=== PATIENT | male | born 1965 ===

== ENCOUNTER 2017-05-11 20:11 | Observation (INO) | payer MEDICAID, OTHER, SELFPAY ==
[2017-05-11] MEDS ORDERED: Sodium Chloride 0.9% 1,000 ML IV STA ×2 (20:51→21:56)
[2017-05-11 21:29] LABS: BASO % 0.4 % (0.0-2.0); EOS % 0.4 % (0.0-4.0); HEMATOCRIT 49.9 % (35.0-51.0); LYMPH # 1.3 K/uL (1.0-4.3); LYMPH % 12.9 % (20.0-40.0); MEAN CELL VOLUME 87.6 fl (80.0-94.0); MEAN CORPUSCULAR HEMOGLOBIN 30.5 pg (27.0-31.0); MEAN CORPUSCULAR HGB CONC 34.8 g/dL (33.0-37.0); MEAN PLATELET VOLUME 9.5 fl (7.2-11.7); MONO % 9.9 % (0.0-10.0); NEUT # 7.9 K/uL (1.8-7.0); NEUT % 76.4 % (50.0-75.0); NRBC % 0.2 % (0.0-0.0); RED CELL DISTRIBUTION WIDTH 13.4 % (11.5-14.5); WHITE BLOOD COUNT 10.3 K/uL (4.8-10.8)
--- NOTE | 2017-05-11 21:35 | ED PDOC ---
HPI: General Adult Time Seen by Provider: 05/11/17 20:31 Chief Complaint (Nursing): ENT Problem Chief Complaint (Provider): Muscle Cramps History Per: Patient History/Exam Limitations: no limitations Onset/Duration Of Symptoms: Hrs Have you had recent travel within the past 21 days to any of the following countries: [place], [place], [place] or [place]?: No Current Symptoms Are (Timing): Still Present Additional Complaint(s): Josh Lawler, a 51 year old male, who has a PMHx of kidney failure and rhabdomyolysis presents to the ED with muscle cramps. 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 The patient reports that he feels as though all his muscles are cramping. He states that he also feels mild chest pain, has SOB and feels lightheaded. The patient reports that he had similar episodes last year before he was diagnosed with rhabdomyolysis and kidney failure. He states that he tried to drink alot of fluids while outside today and he was working outdoors yesterday as well. Patient states that he goes to the clinic here at [place]. Denies urinary symptoms. Past Medical History Reviewed: Historical Data, Nursing Documentation, Vital Signs Vital Signs: Last Vital Signs Temp 98.0 F 05/11/17 20:18 Pulse 90 05/11/17 20:18 Resp 16 05/11/17 20:18 BP 134/74 05/11/17 20:18 Pulse Ox 100 05/11/17 20:18 - Medical History PMH: HTN Denies: Chronic Kidney Disease Other PMH: Rhabdomyolysis - Family History Family History: States: Unknown Family Hx - Home Medications Home Medications: Ambulatory Orders Medication Instructions Recorded Naproxen [Naprosyn] 500 mg PO BID PRN #15 tablet 01/21/17 - Allergies Allergies/Adverse Reactions: Allergies Allergy/AdvReac Type Severity Reaction Status Date / Time No Known Allergies Allergy Verified 05/11/17 20:18 Review of Systems ROS Statement: Except As Marked, All Systems Reviewed And Found Negative Cardiovascular: Positive for: Chest Pain (Mild chest pain), Light Headedness Respiratory: Positive for: Shortness of Breath Genitourinary Male: Negative for: Dysuria, Frequency, Incontinence, Hematuria Musculoskeletal: Positive for: Other (Muscle Cramps) Physical Exam - Reviewed Nursing Documentation Reviewed: Yes Vital Signs Reviewed: Yes - Physical Exam Appears: Positive for: Non-toxic, In Acute Distress (Mild painful distress) Head Exam: Positive for: ATRAUMATIC, NORMOCEPHALIC Skin: Positive for: Normal Color, Warm, Dry Eye Exam: Positive for: Normal appearance, EOMI, PERRL ENT: Positive for: Normal ENT Inspection Neck: Positive for: Normal, Painless ROM, Supple Cardiovascular/Chest: Positive for: Regular Rate, Rhythm, Chest Non Tender. Negative for: Tachycardia Respiratory: Positive for: Normal Breath Sounds. Negative for: Wheezing, Respiratory Distress Gastrointestinal/Abdominal: Positive for: Normal Exam, Bowel Sounds, Soft. Negative for: Tenderness, Guarding, Rebound Back: Positive for: Normal Inspection Extremity: Positive for: Normal ROM. Negative for: Tenderness, Pedal Edema, Deformity, Swelling Neurologic/Psych: Positive for: Alert, Oriented, Gait - ECG O2 Sat by Pulse Oximetry: 100 (RA) Pulse Ox Interpretation: Normal Medical Decision Making Medical Decision Makin:31 Initial Impression: 51 year old male presenting with muscle cramps Differentials: Dehydration, Electrolyte Abnormalities, Rhabdomyolysis Initial Plan: * EKG * CMP * Creatine Phosphate * Lactic Acid-Plasma * Magnesium * Phosphorous * Troponin 1 * Udip * CBC * Partial Thromboplastin * Prothrombin time * NS 1000ml IV 1000mls/hr * Ultram 50mg PO * Rapid Strep group * [id number] * Reevaluation Scribe Attestation Documented by Rola Madrigal acting as a scribe for Desiree Burger MD. Provider Attestation All medical record entries made by the Scribe were at my direction and personally dictated by me. I have reviewed the chart and agree that the record accurately reflects my personal performance of the history, physical exam, medical decision making, and the department course for this patient. I have also personally directed, reviewed, and agree with the discharge instructions and disposition.
[2017-05-11 21:44] LABS: ALB/GLOB RATIO 1.2 (1.0-2.1); BILIRUBIN,TOTAL 1.3 mg/dl (0.2-1.3); CALCIUM 10.2 mg/dL (8.4-10.2); MAGNESIUM 2.3 MG/DL (1.6-2.3); PHOSPHOROUS 6.6 mg/dl (2.5-4.5); POTASSIUM 4.6 MMOL/L (3.6-5.0); TOTAL PROTEIN 10.3 G/DL (6.3-8.2)
[2017-05-11 21:49] LABS: PARTIAL THROMBOPLASTIN TIME 26.4 Seconds (25.6-37.1)
[2017-05-11 21:55] LABS: TROPONIN I 0.032 ng/mL (0.00-0.120)
--- NOTE | 2017-05-11 22:14 | CP.PCM.HP ---
History of Present Illness - History of Present Illness History of Present Illness: CC: Myalgias 51M with history of rhabdomyolysis p/w worsening body "cramps" that started the day prior but worsened throughout the day today while working out in the sun. He reports this was associated with some nausea. He also reports a sore throat for the past 2 days and urine color change to "darker". He denies any sick contacts, fevers, chills, vomiting, SOB, chest pain, palpitations, dysuria. PMH: Rhabdomyolysis PSH: None Smoke: Never Alcohol: Occ Drugs: Denies ALL: NKDA KIMBERLY: Denies ED COURSE VSS: 36.7- 90- 134/74- 16- 100% CBC: 10.3>17.4/49.9<184, Neut- 76.4%, Neut Abs- 7.9H CMP: 136/4.6- 97L/20L- 26H/1.8H, Ca- 10.2, Phos- 6.6, Gluc- 116H, TBili- 1.3, ALP/AST/ALT-109/49/46, TProt/Alb- 10.3/5.7 Trop #1: 0.0320 CPK: 404H EKG NS 2L bolus Present on Admission - Present on Admission Any Indicators Present on Admission: No Review of Systems - Review of Systems All systems: reviewed and no additional remarkable complaints except - EENT Nose/Mouth/Throat: Sore Throat - Musculoskeletal Musculoskeletal: Muscle Cramps (entire body) Past Patient History - Infectious Disease Hx of Infectious Diseases: None - Past Medical History & Family History Past Medical History?: Yes - Past Social History Smoking Status: Never Smoked - CARDIAC Hx Hypertension: Yes - PULMONARY Hx Respiratory Disorders: No - NEUROLOGICAL Hx Neurological Disorder: No - HEENT Hx HEENT Problems: No - RENAL Hx Chronic Kidney Disease: No - ENDOCRINE/METABOLIC Hx Endocrine Disorders: No - HEMATOLOGICAL/ONCOLOGICAL Hx Blood Disorders: No - INTEGUMENTARY Hx Dermatological Problems: No - MUSCULOSKELETAL/RHEUMATOLOGICAL Hx Falls: Yes (fell 15 yrs ago, work-related) - GASTROINTESTINAL Hx Gastrointestinal Disorders: No - GENITOURINARY/GYNECOLOGICAL Hx Genitourinary Disorders: No - PSYCHIATRIC Hx Psychophysiologic Disorder: No Hx Substance Use: No - SURGICAL HISTORY Hx Surgeries: No - ANESTHESIA Hx Anesthesia: Yes Hx Anesthesia Reactions: No Meds Allergies/Adverse Reactions: Allergies Allergy/AdvReac Type Severity Reaction Status Date / Time No Known Allergies Allergy Verified 05/11/17 20:18 Physical Exam - Constitutional Appears: Well, Non-toxic, No Acute Distress - Head Exam Head Exam: ATRAUMATIC, NORMAL INSPECTION - Eye Exam Eye Exam: EOMI, PERRL - ENT Exam ENT Exam: Mucous Membranes Moist, Normal Exam. absent: Normal Oropharynx ( erythematous, but did not appreciate enlarged tonsils or exudates) - Neck Exam Neck exam: Positive for: Lymphadenopathy (LEFT submandibular node), Normal Inspection - Respiratory Exam Respiratory Exam: Clear to Auscultation Bilateral, NORMAL BREATHING PATTERN. absent: Rales, Wheezes - Cardiovascular Exam Cardiovascular Exam: REGULAR RHYTHM, +S1, +S2. absent: JVD - GI/Abdominal Exam GI & Abdominal Exam: Normal Bowel Sounds, Soft. absent: Tenderness - Extremities Exam Extremities exam: Positive for: full ROM, normal capillary refill, pedal pulses present. Negative for: pedal edema - Back Exam Back exam: CVA tenderness (L), CVA tenderness (R) - Neurological Exam Neurological exam: Alert, Oriented x3, Reflexes Normal - Psychiatric Exam Psychiatric exam: Normal Affect, Normal Mood - Skin Skin Exam: Normal Color, Warm Results - Vital Signs Recent Vital Signs: Last Vital Signs Temp 36.7 C 05/11/17 20:18 Pulse 90 05/11/17 20:18 Resp 16 05/11/17 20:18 BP 134/74 05/11/17 20:18 Pulse Ox 100 05/11/17 21:41 - Labs Result Diagrams: 05/11/17 21:15 05/12/17 00:29 Assessment & Plan (1) Strep pharyngitis Assessment and Plan: Rapid Strep positive though patient denies any fevers, chills, cough and afebrile in the ED. - Augmentin Q12H - f/u Strep Culture - f/u HIV Status: Acute (2) Rhabdomyolysis Assessment and Plan: Proposed exacerbating event is heat combined with volume depletion, of note this is the 3rd episode. Unfortunately, no UA obtained in the ED. - Trend CMP, CPK, Troponins - LDH - Rpt Lactic Acid - NS 200cc/hr Status: Acute (3) Acute renal failure Assessment and Plan: Likely multifactorial given rhabdomyolysis, volume depletion 2/2 heat, and possible contributing factor of ?strep infection. Unfortunately, no UA obtained in the ED. - Trend CMP, CPK, Troponins - LDH - Rpt Lactic Acid - NS 200cc/hr Status: Acute (4) DVT prophylaxis Assessment and Plan: Heparin 5,000U, SC, Q8H Status: Acute
[2017-05-11] MEDS ORDERED: Amoxicillin-Clav 875-125 mg Tab PO ONE (22:24)
[2017-05-11] MEDS: Amoxicillin-Clav 875-125 mg Tab PO SCH (22:35)
[2017-05-11] MEDS: Sodium Chloride 0.9% 1,000 ML IV SCH (23:25)
[2017-05-12 00:49] LABS: ALB/GLOB RATIO 1.3 (1.0-2.1); ALKALINE PHOSPHATASE 93 U/L (38-126); ALT/SGPT 37 U/L (21-72); AST/SGOT 38 U/L (17-59); BILIRUBIN,TOTAL 1.1 mg/dl (0.2-1.3); BLOOD UREA NITROGEN 21 mg/dl (9-20); CALCIUM 8.7 mg/dL (8.4-10.2); CARBON DIOXIDE 22 mmol/L (22-30); CHLORIDE 105 mmol/L (98-107); GFR AFRICAN-AMERICAN > 60; GLUCOSE,RANDOM 129 mg/dL (75-110); POTASSIUM 4.4 MMOL/L (3.6-5.0); SODIUM 137 mmol/l (132-148); TOTAL PROTEIN 7.9 G/DL (6.3-8.2)
[2017-05-12] MEDS: Sodium Chloride 0.9% 1,000 ML IV SCH ×3 (04:19→14:20)
[2017-05-12 06:56] LABS: BASO % 0.4 % (0.0-2.0); EOS # 0.1 K/uL (0.0-0.7); EOS % 1.8 % (0.0-4.0); HEMATOCRIT 40.7 % (35.0-51.0); LYMPH # 2.1 K/uL (1.0-4.3); LYMPH % 33.9 % (20.0-40.0); MEAN CELL VOLUME 88.5 fl (80.0-94.0); MEAN CORPUSCULAR HEMOGLOBIN 30.6 pg (27.0-31.0); MEAN CORPUSCULAR HGB CONC 34.5 g/dL (33.0-37.0); MEAN PLATELET VOLUME 9.3 fl (7.2-11.7); MONO # 0.8 K/uL (0.0-0.8); MONO % 12.9 % (0.0-10.0); NEUT # 3.2 K/uL (1.8-7.0); NRBC % 0.1 % (0.0-0.0); RED CELL DISTRIBUTION WIDTH 13.7 % (11.5-14.5); WHITE BLOOD COUNT 6.3 K/uL (4.8-10.8)
[2017-05-12 07:52] LABS: ALB/GLOB RATIO 1.3 (1.0-2.1); ALKALINE PHOSPHATASE 81 U/L (38-126); ALT/SGPT 34 U/L (21-72); AST/SGOT 34 U/L (17-59); BILIRUBIN,TOTAL 1.2 mg/dl (0.2-1.3); BLOOD UREA NITROGEN 17 mg/dl (9-20); CALCIUM 8.2 mg/dL (8.4-10.2); CARBON DIOXIDE 23 mmol/L (22-30); CHLORIDE 109 mmol/L (98-107); GFR AFRICAN-AMERICAN > 60; GLUCOSE,RANDOM 95 mg/dL (75-110); POTASSIUM 4.5 MMOL/L (3.6-5.0); SODIUM 140 mmol/l (132-148); TOTAL PROTEIN 6.8 G/DL (6.3-8.2)
[2017-05-12] MEDS: Amoxicillin-Clav 875-125 mg Tab PO SCH (08:21)
[2017-05-12] MEDS ORDERED: Pneumococcal 23-Valent Vaccine IM ONE (09:00)
--- NOTE | 2017-05-12 09:03 | CP.PCM.PN ---
Subjective - Date & Time of Evaluation Date of Evaluation: 05/12/17 Time of Evaluation: 08:45 - Subjective Subjective: No acute events overnight. Patient feeling better. No cramping overnight, pain is improved. Tolerating PO diet. No complaints at the time of this visit. 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 Will consult Dr. Mccullough- nephro. Objective - Vital Signs/Intake and Output Vital Signs (last 24 hours): Temp Pulse Resp BP Pulse Ox 98.6 F 70 20 106/68 95 05/12/17 07:24 05/12/17 07:24 05/12/17 07:24 05/12/17 07:24 05/12/17 07:24 - Medications Medications: Current Medications Amoxicillin/Clavulanate Potassium (Augmentin 875 Mg-125 Mg Tab) 1 tab PO Q12 [facility] Last Admin: 05/12/17 08:21 Dose: 1 tab Heparin Sodium (Porcine) (Heparin) 5,000 units SC Q8 [facility] PRN Reason: Protocol Last Admin: 05/12/17 08:21 Dose: 5,000 units Sodium Chloride (Sodium Chloride 0.9%) 1,000 mls @ 200 mls/hr IV .Q5H [facility] Last Admin: 05/12/17 04:19 Dose: 200 mls/hr - Labs Labs: 05/12/17 05:50 05/12/17 05:50 PT 11.6 Seconds (9.8-13.1) 05/11/17 21:15 INR 1.0 (0.9-1.2) 05/11/17 21:15 APTT 26.4 Seconds (25.6-37.1) 05/11/17 21:15 - Constitutional Appears: Other (mild pain, but comfortable in bed. ) - Eye Exam Eye Exam: Normal appearance - ENT Exam ENT Exam: Mucous Membranes Moist - Respiratory Exam Respiratory Exam: Clear to Ausculation Bilateral, NORMAL BREATHING PATTERN - Cardiovascular Exam Cardiovascular Exam: REGULAR RHYTHM, +S1, +S2 - GI/Abdominal Exam GI & Abdominal Exam: Soft, Normal Bowel Sounds. absent: Distended, Tenderness - Extremities Exam Extremities Exam: Full ROM. absent: Pedal Edema - Back Exam Back Exam: NORMAL INSPECTION - Neurological Exam Neurological Exam: Alert, Awake, CN II-XII Intact, Oriented x3. absent: Motor Sensory Deficit Additional comments: 5/5 strength in upper and lower extremities - Psychiatric Exam Psychiatric exam: Normal Affect, Normal Mood - Skin Skin Exam: Dry, Intact. absent: Pallor Assessment and Plan - Assessment and Plan (Free Text) Assessment: 51 year old male presented with sore throat and cramping and muscle soreness admitted for FAWN likely secondary to rhabdomylysis, with +strep throat. Patient is stable. Symptoms improved. (1) Rhabdomyolysis Assessment and Plan: improved, likely secondary to severe dehydration, given patients occupation, hg of 17 and presentation -CPK trending down, remains elevated - LDH --aldolase, mycoplasma, urine myoglobin, ua ordered and pending. -Appreciate nephrology recommendations. (Dr. Mccullough) - NS 200cc/hr Status: Acute (2) Strep pharyngitis Assessment and Plan: Rapid Strep positive though patient denies any fevers, chills, cough and afebrile - Augmentin Q12H - f/u Strep Culture - f/u HIV Status: Acute (3) Acute kidney injury Assessment and Plan: Likely multifactorial given rhabdomyolysis, volume depletion secondary to heat, and possible contributing factor of ?strep infection. - UA - repeat labs reviewed; CPK trending down. - LDH: WNL - Rpt Lactic Acid: 1.3 - NS 200cc/hr Status: Acute (4) DVT prophylaxis Assessment and Plan: Heparin 5,000U, SC, Q8H Status: Acute
--- NOTE | 2017-05-12 13:04 | CP.PCM.PN ---
Subjective - Date & Time of Evaluation Date of Evaluation: 05/12/17 Time of Evaluation: 13:01 - Subjective Subjective: This patient who is 51 years old came to the emergency room complaining of cramping all over his upper extremity but the legs. 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 He started to complain of cramping he was very hot day yesterday with temperature 95. And he came to the ER with abnormal BUN/creatinine and J elevated CPK. The history reported that the has couple admission before related to rhabdomyolysis as well with mild elevation of CPK the highest was about 1100. Deny any drugs Social history unremarkable Objective - Vital Signs/Intake and Output Vital Signs (last 24 hours): Temp Pulse Resp BP Pulse Ox 98.6 F 70 20 106/68 95 05/12/17 07:24 05/12/17 07:24 05/12/17 07:24 05/12/17 07:24 05/12/17 07:24 - Medications Medications: Current Medications Amoxicillin/Clavulanate Potassium (Augmentin 875 Mg-125 Mg Tab) 1 tab PO Q12 [facility] Last Admin: 05/12/17 08:21 Dose: 1 tab Heparin Sodium (Porcine) (Heparin) 5,000 units SC Q8 [facility] PRN Reason: Protocol Last Admin: 05/12/17 08:21 Dose: 5,000 units Sodium Chloride (Sodium Chloride 0.9%) 1,000 mls @ 200 mls/hr IV .Q5H [facility] Last Admin: 05/12/17 09:25 Dose: Not Given - Labs Labs: 05/12/17 05:50 05/12/17 05:50 PT 11.6 Seconds (9.8-13.1) 05/11/17 21:15 INR 1.0 (0.9-1.2) 05/11/17 21:15 APTT 26.4 Seconds (25.6-37.1) 05/11/17 21:15 - Constitutional Appears: No Acute Distress - ENT Exam ENT Exam: Mucous Membranes Moist - Respiratory Exam Respiratory Exam: absent: Chest Wall Tenderness - Cardiovascular Exam Cardiovascular Exam: REGULAR RHYTHM. absent: Rubs - Extremities Exam Extremities Exam: absent: Calf Tenderness - Back Exam Back Exam: absent: CVA tenderness (L), CVA tenderness (R) - Neurological Exam Neurological Exam: Alert
--- NOTE | 2017-05-12 13:07 | CP.PCM.CON ---
History of Present Illness - History of Present Illness History of Present Illness: This patient who is 51 years old came to the emergency room complaining of cramping all over his upper extremity but the legs. 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 He started to complain of cramping he was very hot day yesterday with temperature 95. And he came to the ER with abnormal BUN/creatinine and J elevated CPK. The history reported that the has couple admission before related to rhabdomyolysis as well with mild elevation of CPK the highest was about 1100. Deny any drugs Social history unremarkable Review of Systems - Constitutional Constitutional: As Per HPI - Cardiovascular Cardiovascular: absent: Chest Pain, Syncope - Respiratory Respiratory: absent: Cough, Dyspnea - Gastrointestinal Gastrointestinal: absent: Abdominal Pain, Nausea - Reproductive: Male Reproductive:Male: As Per HPI - Musculoskeletal Musculoskeletal: Muscle Cramps Past Patient History - Infectious Disease Hx of Infectious Diseases: None - Past Medical History & Family History Past Medical History?: Yes - Past Social History Smoking Status: Never Smoked - CARDIAC Hx Hypertension: Yes - PULMONARY Hx Respiratory Disorders: No - NEUROLOGICAL Hx Neurological Disorder: No - HEENT Hx HEENT Problems: No - RENAL Hx Chronic Kidney Disease: No - ENDOCRINE/METABOLIC Hx Endocrine Disorders: No - HEMATOLOGICAL/ONCOLOGICAL Hx Blood Disorders: No - INTEGUMENTARY Hx Dermatological Problems: No - MUSCULOSKELETAL/RHEUMATOLOGICAL Hx Falls: Yes (fell 15 yrs ago, work-related) - GASTROINTESTINAL Hx Gastrointestinal Disorders: No - GENITOURINARY/GYNECOLOGICAL Hx Genitourinary Disorders: No - PSYCHIATRIC Hx Psychophysiologic Disorder: No Hx Substance Use: No - SURGICAL HISTORY Hx Surgeries: No - ANESTHESIA Hx Anesthesia: Yes Hx Anesthesia Reactions: No Meds Allergies/Adverse Reactions: Allergies Allergy/AdvReac Type Severity Reaction Status Date / Time No Known Allergies Allergy Verified 05/11/17 20:18 - Medications Medications: Current Medications Amoxicillin/Clavulanate Potassium (Augmentin 875 Mg-125 Mg Tab) 1 tab PO Q12 [facility] Last Admin: 05/12/17 08:21 Dose: 1 tab Heparin Sodium (Porcine) (Heparin) 5,000 units SC Q8 [place] PRN Reason: Protocol Last Admin: 05/12/17 08:21 Dose: 5,000 units Sodium Chloride (Sodium Chloride 0.9%) 1,000 mls @ 200 mls/hr IV .Q5H [facility] Last Admin: 05/12/17 09:25 Dose: Not Given Physical Exam - Constitutional Appears: No Acute Distress - Eye Exam Eye Exam: Normal appearance - Neck Exam Neck exam: Negative for: Lymphadenopathy - Respiratory Exam Respiratory Exam: absent: Chest Wall Tenderness - Cardiovascular Exam Cardiovascular Exam: REGULAR RHYTHM. absent: Rubs - GI/Abdominal Exam GI & Abdominal Exam: Normal Bowel Sounds - Extremities Exam Extremities exam: Negative for: calf tenderness - Back Exam Back exam: absent: CVA tenderness (L), CVA tenderness (R) - Neurological Exam Neurological exam: Alert Results - Vital Signs Recent Vital Signs: Last Vital Signs Temp 98.6 F 05/12/17 07:24 Pulse 70 05/12/17 07:24 Resp 20 05/12/17 07:24 BP 106/68 05/12/17 07:24 Pulse Ox 95 05/12/17 07:24 - Labs Result Diagrams: 05/12/17 05:50 05/12/17 05:50 Labs: Laboratory Results - last 24 hr 05/12/17 05/12/17 05/12/17 00:27 00:29 05:50 WBC 6.3 RBC 4.60 Hgb 14.1 D Hct 40.7 MCV 88.5 MCH 30.6 MCHC 34.5 RDW 13.7 Plt Count 148 MPV 9.3 Neut % (Auto) 51.0 Lymph % (Auto) 33.9 [place] % (Auto) 12.9 H Eos % (Auto) 1.8 Baso % (Auto) 0.4 Neut # 3.2 Lymph # 2.1 [place] # 0.8 Eos # 0.1 Baso # 0.0 Sodium 137 Potassium 4.4 Chloride 105 Carbon Dioxide 22 Anion Gap 14 BUN 21 H Creatinine 1.2 Est GFR ( Amer) > 60 Est GFR (Non-Af Amer) > 60 Random Glucose 129 H Lactic Acid 1.3 Calcium 8.7 Total Bilirubin 1.1 AST 38 ALT 37 Alkaline Phosphatase 93 Lactate Dehydrogenase Total Creatine Kinase 357 H Troponin I Total Protein 7.9 Albumin 4.4 Globulin 3.4 Albumin/Globulin Ratio 1.3 05/12/17 05:50 WBC RBC Hgb Hct MCV MCH MCHC RDW Plt Count MPV Neut % (Auto) Lymph % (Auto) [place] % (Auto) Eos % (Auto) Baso % (Auto) Neut # Lymph # [place] # Eos # Baso # Sodium 140 Potassium 4.5 Chloride 109 H Carbon Dioxide 23 Anion Gap 13 BUN 17 Creatinine 1.0 Est GFR ( Amer) > 60 Est GFR (Non-Af Amer) > 60 Random Glucose 95 Lactic Acid Calcium 8.2 L Total Bilirubin 1.2 AST 34 ALT 34 Alkaline Phosphatase 81 Lactate Dehydrogenase 446 Total Creatine Kinase 305 H Troponin I < 0.0120 Total Protein 6.8 Albumin 3.8 Globulin 3.0 Albumin/Globulin Ratio 1.3 Assessment & Plan (1) Acute kidney injury Assessment and Plan: Patient appeared to have acute kidney injury he came with serum creatinine 1.8 however it recover today was normal serum creatinine after hydration secondary to rhabdomyolysis because of the cramping Also consistent with dehydration he came with hemoglobin over 17 and after hydration came down to 14+ after hydration No urinalysis in the chart yet I order stat urinalysis now Patient doing fine clinically force fluid by mouth he recover from acute kidney injury I order serum aldolase level can be done as outpatient and the patient can be discharged and if CPK still elevated after a week or so then we will do a muscle biopsy and or aldolase elevated Patient need to do 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 Status: Acute
[2017-05-12 13:24] LABS: BLOOD UREA NITROGEN 15 mg/dl (9-20); CALCIUM 8.2 mg/dL (8.4-10.2); CARBON DIOXIDE 21 mmol/L (22-30); CHLORIDE 110 mmol/L (98-107); GFR AFRICAN-AMERICAN > 60; GLUCOSE,RANDOM 96 mg/dL (75-110); POTASSIUM 3.9 MMOL/L (3.6-5.0); SODIUM 139 mmol/l (132-148)
[2017-05-12 13:56] LABS: RBC URINE 2 /hpf (0-3); URINE BILIRUBIN NEGATIVE (NEGATIVE); URINE BLOOD NEGATIVE (NEGATIVE); URINE COLOR YELLOW (YELLOW); URINE GLUCOSE (UA) NEG (Normal); URINE KETONE NEGATIVE (NEGATIVE); URINE LEUKOCYTE ESTERASE NEG Leu/uL (Negative); URINE PROTEIN NEGATIVE (NEGATIVE); URINE UROBILINOGEN 0.2-1.0 mg/dL (0.2-1.0); WBC URINE < 1 /hpf (0-5)
--- NOTE | 2017-05-12 15:50 | CARD ---
APPROVED REPORT EKG Measurement Heart [id number] [id number] <Conclusion> Normal sinus rhythm Possible Left atrial enlargement High J point
[2017-05-12 16:18] VITALS: BP 108/68; PULSE 69; RESP 18; TEMP 98; O2SAT 98
--- NOTE | 2017-05-12 17:51 | CP.PCM.DIS ---
Provider - Provider Date of Admission: 05/11/17 22:03 Attending physician: Marcella Barnes MD Time Spent in preparation of Discharge (in minutes): 35 Hospital Course - Lab Results Lab Results: Most Recent Lab Values WBC 6.3 K/uL (4.8-10.8) 05/12/17 05:50 RBC 4.60 Mil/uL (4.40-5.90) 05/12/17 05:50 Hgb 14.1 g/dL (12.0-18.0) D 05/12/17 05:50 Hct 40.7 % (35.0-51.0) 05/12/17 05:50 MCV 88.5 fl (80.0-94.0) 05/12/17 05:50 MCH 30.6 pg (27.0-31.0) 05/12/17 05:50 MCHC 34.5 g/dL (33.0-37.0) 05/12/17 05:50 RDW 13.7 % (11.5-14.5) 05/12/17 05:50 Plt Count 148 K/uL (130-400) 05/12/17 05:50 MPV 9.3 fl (7.2-11.7) 05/12/17 05:50 Neut % (Auto) 51.0 % (50.0-75.0) 05/12/17 05:50 Lymph % (Auto) 33.9 % (20.0-40.0) 05/12/17 05:50 [place] % (Auto) 12.9 % (0.0-10.0) H 05/12/17 05:50 Eos % (Auto) 1.8 % (0.0-4.0) 05/12/17 05:50 Baso % (Auto) 0.4 % (0.0-2.0) 05/12/17 05:50 Neut # 3.2 K/uL (1.8-7.0) 05/12/17 05:50 Lymph # 2.1 K/uL (1.0-4.3) 05/12/17 05:50 [place] # 0.8 K/uL (0.0-0.8) 05/12/17 05:50 Eos # 0.1 K/uL (0.0-0.7) 05/12/17 05:50 Baso # 0.0 K/uL (0.0-0.2) 05/12/17 05:50 PT 11.6 Seconds (9.8-13.1) 05/11/17 21:15 INR 1.0 (0.9-1.2) 05/11/17 21:15 APTT 26.4 Seconds (25.6-37.1) 05/11/17 21:15 Sodium 139 mmol/l (132-148) 05/12/17 13:09 Potassium 3.9 MMOL/L (3.6-5.0) 05/12/17 13:09 Chloride 110 mmol/L (98-107) H 05/12/17 13:09 Carbon Dioxide 21 mmol/L (22-30) L 05/12/17 13:09 Anion Gap 12 (10-20) 05/12/17 13:09 BUN 15 mg/dl (9-20) 05/12/17 13:09 Creatinine 0.8 mg/dL (0.8-1.5) 05/12/17 13:09 Est GFR ( Amer) > 60 05/12/17 13:09 Est GFR (Non-Af Amer) > 60 05/12/17 13:09 POC Glucose (mg/dL) 126 mg/dL (65-110) H 05/11/17 21:40 Random Glucose 96 mg/dL (75-110) 05/12/17 13:09 Lactic Acid 1.3 MMOL/L (0.7-2.1) 05/12/17 00:27 Calcium 8.2 mg/dL (8.4-10.2) L 05/12/17 13:09 Phosphorus 6.6 mg/dl (2.5-4.5) H 05/11/17 21:15 Magnesium 2.3 MG/DL (1.6-2.3) 05/11/17 21:15 Total Bilirubin 1.2 mg/dl (0.2-1.3) 05/12/17 05:50 AST 34 U/L (17-59) 05/12/17 05:50 ALT 34 U/L (21-72) 05/12/17 05:50 Alkaline Phosphatase 81 U/L (38-126) 05/12/17 05:50 Lactate Dehydrogenase 446 U/L (313-618) 05/12/17 05:50 Total Creatine Kinase 300 U/L (55-170) H 05/12/17 13:09 Troponin I < 0.0120 ng/mL (0.00-0.120) 05/12/17 13:06 Total Protein 6.8 G/DL (6.3-8.2) 05/12/17 05:50 Albumin 3.8 g/dL (3.5-5.0) 05/12/17 05:50 Globulin 3.0 gm/dL (2.2-3.9) 05/12/17 05:50 Albumin/Globulin Ratio 1.3 (1.0-2.1) 05/12/17 05:50 Urine Color Yellow (YELLOW) 05/12/17 13:00 Urine Clarity Clear (Clear) 05/12/17 13:00 Urine pH 6.0 (5.0-8.0) 05/12/17 13:00 Ur Specific [place] 1.023 (1.003-1.030) 05/12/17 13:00 Urine Protein Negative mg/dL (NEGATIVE) 05/12/17 13:00 Urine Glucose (UA) Neg mg/dL (Normal) 05/12/17 13:00 Urine Ketones Negative mg/dL (NEGATIVE) 05/12/17 13:00 Urine Blood Negative (NEGATIVE) 05/12/17 13:00 Urine Nitrate Negative (NEGATIVE) 05/12/17 13:00 Urine Bilirubin Negative (NEGATIVE) 05/12/17 13:00 Urine Urobilinogen 0.2-1.0 mg/dL (0.2-1.0) 05/12/17 13:00 Ur Leukocyte Esterase Neg [place]/uL (Negative) 05/12/17 13:00 Urine RBC (Auto) 2 /hpf (0-3) 05/12/17 13:00 Urine Microscopic WBC < 1 /hpf (0-5) 05/12/17 13:00 Urine Opiates Screen Negative (NEGATIVE) 05/12/17 13:00 Urine Methadone Screen Negative (NEGATIVE) 05/12/17 13:00 Ur Barbiturates Screen Negative (NEGATIVE) 05/12/17 13:00 Ur Phencyclidine Scrn Negative (NEGATIVE) 05/12/17 13:00 Ur Amphetamines Screen Negative (NEGATIVE) 05/12/17 13:00 U Benzodiazepines Scrn Negative (NEGATIVE) 05/12/17 13:00 U Oth Cocaine Metabols Negative (NEGATIVE) 05/12/17 13:00 U Cannabinoids Screen Negative (NEGATIVE) 05/12/17 13:00 Grp A Beta Strep Ag Positive (NEGATIVE) H 05/11/17 21:15 - Date & Time of H&P Date of H&P: 05/11/17 Time of H&P: 22:14 Discharge Exam - Head Exam Head Exam: ATRAUMATIC, NORMAL INSPECTION Discharge Plan - Discharge Medications Prescriptions: Amoxicillin/Clavulanate [Augmentin 875 MG-125 MG Tab] 1 tab PO Q12 #12 tab - Follow Up Plan Condition: STABLE Disposition: HOME/ ROUTINE Instructions: Rhabdomyolysis (DC) Additional Instructions: Repeat CPK on Wednesday. Follow up appointment on April at 13:[address] Peters
== END 2017-05-12 18:05 | disposition home or self-care (01) ==
LOC: H.ER 20:11 → H.ERHOLD 22:03 → H.MEDSURG1 23:19
PROVIDERS: ADMIT Family Medicine Geriatric Medicine; ATTEND Family Medicine Geriatric Medicine
DX: M62.82 Rhabdomyolysis (principal); N17.9 Acute kidney failure, unspecified; E86.0 Dehydration; I10 Essential (primary) hypertension; J02.0 Streptococcal pharyngitis; Z23 Encounter for immunization

== ENCOUNTER 2017-07-06 14:12 | Emergency (ER) | payer SELFPAY ==
[2017-07-06] MEDS ORDERED: Sodium Chloride 0.9% 1,000 ML IV STA (14:29)
[2017-07-06] MEDS ORDERED: ceFAZolin 1 GM in Sodium Chloride 0.9% 100 ML IVPB STA (14:30)
[2017-07-06] MEDS ORDERED: TDAP Vaccine 0.5 mL Syr IM ONE (14:30)
[2017-07-06] MEDS ORDERED: Morphine 4 MG/ML VIAL ONE (14:34)
[2017-07-06 14:37] LABS: BASO # 0.1 K/uL (0.0-0.2); BASO % 0.5 % (0.0-2.0); EOS # 0.1 K/uL (0.0-0.7); EOS % 0.8 % (0.0-4.0); HEMOGLOBIN 14.7 g/dL (12.0-18.0); LYMPH # 4.5 K/uL (1.0-4.3); LYMPH % 39.4 % (20.0-40.0); MEAN CORPUSCULAR HEMOGLOBIN 31.8 pg (27.0-31.0); MEAN CORPUSCULAR HGB CONC 35.7 g/dL (33.0-37.0); MEAN PLATELET VOLUME 9.2 fl (7.2-11.7); MONO # 0.5 K/uL (0.0-0.8); MONO % 4.6 % (0.0-10.0); NEUT # 6.2 K/uL (1.8-7.0); NEUT % 54.7 % (50.0-75.0); NRBC % 0.1 % (0.0-0.0); RBC 4.62 Mil/uL (4.40-5.90); RED CELL DISTRIBUTION WIDTH 13.2 % (11.5-14.5)
[2017-07-06 14:48] LABS: WHITE BLOOD COUNT 11.3 K/uL (4.8-10.8)
[2017-07-06 14:56] LABS: BLOOD UREA NITROGEN 13 mg/dl (9-20); CALCIUM 9.4 mg/dL (8.4-10.2); GFR AFRICAN-AMERICAN > 60; GFR NON-AFRICAN AMERICAN > 60
--- NOTE | 2017-07-06 15:03 | ED PDOC ---
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 states a piece of metal from ceiling demolition fell onto arm cutting him. Pt admits to dizziness sweating loss of blood x 20 mins. Pt able to move finger buf has weakness. no SOB no CP at this time. Past Medical History Reviewed: Historical Data, Nursing Documentation, Vital Signs - Medical History PMH: HTN Denies: Chronic Kidney Disease - Family History Family History: States: Unknown Family Hx - Home Medications Home Medications: Ambulatory Orders Medication Instructions Recorded Amoxicillin/Clavulanate [Augmentin 1 tab PO Q12 #12 tab 05/12/17 875 MG-125 MG Tab] - Allergies Allergies/Adverse Reactions: Allergies Allergy/AdvReac Type Severity Reaction Status Date / Time No Known Allergies Allergy Verified 05/11/17 20:18 Review of Systems ROS Statement: Except As Marked, All Systems Reviewed And Found Negative Musculoskeletal: Positive for: Arm Pain Physical Exam - Reviewed Nursing Documentation Reviewed: Yes Vital Signs Reviewed: Yes - Physical Exam Appears: Positive for: Non-toxic, In Acute Distress Head Exam: Positive for: ATRAUMATIC, NORMAL INSPECTION Skin: Positive for: Warm, Diaphoresis, Pallor Eye Exam: Positive for: EOMI, Normal appearance, PERRL ENT: Positive for: Normal ENT Inspection Neck: Positive for: Normal, Painless ROM Cardiovascular/Chest: Positive for: Regular Rate, Rhythm Respiratory: Positive for: CNT, Normal Breath Sounds Gastrointestinal/Abdominal: Positive for: Normal Exam, Bowel Sounds, Soft. Negative for: Tenderness Extremity: Positive for: Other (right arm: disection noted to suprior of antecubital fossa into joint space severing though muscle belly of bicep with profuse bleeding(arterial). FROM of all fingers, however no raidal pulses noted. axillary nerve is not intact. no shoulder defmrity. ulnar pulses noted. hand: swelling noted, osscialtes btw warm and cold in temperature. >2s of capillary refill. ) Neurologic/Psych: Positive for: Alert, Oriented - Laboratory Results Result Diagrams: 07/06/17 14:32 07/06/17 14:32 - Progress ED Course And Treament: 07/06/17 07/06/17 07/06/17 14:44 14:41 14:35 WBC RBC Hgb Hct MCV MCH MCHC RDW Plt Count MPV Neut % (Auto) Lymph % (Auto) [place] % (Auto) Eos % (Auto) Baso % (Auto) Neut # Lymph # [place] # Eos # Baso # PT INR APTT Sodium Potassium Chloride Carbon Dioxide Anion Gap BUN Creatinine Est GFR ( Amer) Est GFR (Non-Af Amer) Random Glucose Calcium Blood Type Pending Cancelled Blood Type Confirm O POSITIVE Antibody Screen Pending Crossmatch See Detail BBK History Checked No verified bt Cancelled 07/06/17 07/06/17 07/06/17 14:32 14:32 14:32 WBC 11.3 H D RBC 4.62 Hgb 14.7 Hct 41.1 MCV 89.0 MCH 31.8 H MCHC 35.7 RDW 13.2 Plt Count 206 MPV 9.2 Neut % (Auto) 54.7 Lymph % (Auto) 39.4 [place] % (Auto) 4.6 Eos % (Auto) 0.8 Baso % (Auto) 0.5 Neut # 6.2 Lymph # 4.5 H [place] # 0.5 Eos # 0.1 Baso # 0.1 PT 10.9 INR 1.1 APTT 22.6 L Sodium 142 Potassium 3.8 Chloride 109 H Carbon Dioxide 21 L Anion Gap 16 BUN 13 Creatinine 0.8 Est GFR ( Amer) > 60 Est GFR (Non-Af Amer) > 60 Random Glucose 103 Calcium 9.4 Blood Type Blood Type Confirm Antibody Screen Crossmatch BBK History Checked 07/06/17 07/06/17 07/06/17 14:44 14:41 14:35 WBC RBC Hgb Hct MCV MCH MCHC RDW Plt Count MPV Neut % (Auto) Lymph % (Auto) [place] % (Auto) Eos % (Auto) Baso % (Auto) Neut # Lymph # [place] # Eos # Baso # PT INR APTT Sodium Potassium Chloride Carbon Dioxide Anion Gap BUN Creatinine Est GFR ( Amer) Est GFR (Non-Af Amer) Random Glucose Calcium Blood Type Pending Cancelled Blood Type Confirm O POSITIVE Antibody Screen Pending Crossmatch See Detail BBK History Checked No verified bt Cancelled 07/06/17 07/06/1707/06/17 14:32 14:32 14:32 WBC 11.3 H D RBC 4.62 Hgb 14.7 Hct 41.1 MCV 89.0 MCH 31.8 H MCHC 35.7 RDW 13.2 Plt Count 206 MPV 9.2 Neut % (Auto) 54.7 Lymph % (Auto) 39.4 [place] % (Auto) 4.6 Eos % (Auto) 0.8 Baso % (Auto) 0.5 Neut # 6.2 Lymph # 4.5 H [place] # 0.5 Eos # 0.1 Baso # 0.1 PT 10.9 INR 1.1 APTT 22.6 L Sodium 142 Potassium 3.8 Chloride 109 H Carbon Dioxide 21 L Anion Gap 16 BUN 13 Creatinine 0.8 Est GFR ( Amer) > 60 Est GFR (Non-Af Amer) > 60 Random Glucose 103 Calcium 9.4 Blood Type Blood Type Confirm Antibody Screen Crossmatch BBK History Checked Active Medications Discontinued Medications Cefazolin Sodium (Ancef) Confirm Administered Dose 1 gm .ROUTE .STK-MED ONE Stop: 07/06/17 14:34 Hydrogen Peroxide (Hydrogen Peroxide 3%) Confirm Administered Dose 480 ml TP .STK-MED ONE Stop: 07/06/17 15:15 Sodium Chloride (Sodium Chloride 0.9%) 1,000 mls @ 1,000 mls/hr IV .Q1H STA Stop: 07/06/17 15:28 Last Admin: 07/06/17 15:44 Dose: 1,000 mls/hr Cefazolin Sodium 1 gm/ Sodium (Chloride) 100 mls @ 100 mls/hr IVPB STAT STA Stop: 07/06/17 15:29 Last Admin: 07/06/17 15:44 Dose: 100 mls/hr Morphine Sulfate (Morphine) Confirm Administered Dose 2 mg .ROUTE .STK-MED ONE Stop: 07/06/17 14:30 Morphine Sulfate (Morphine) 4 mg IVP ONCE ONE Stop: 07/06/17 14:31 Last Admin: 07/06/17 14:35 Dose: 4 mg Morphine Sulfate (Morphine) Confirm Administered Dose 4 mg .ROUTE .STK-MED ONE Stop: 07/06/17 14:35 Morphine Sulfate (Morphine) 2 mg IVP STAT STA Stop: 07/06/17 14:45 Last Admin: 07/06/17 14:50 Dose: 2 mg Morphine Sulfate (Morphine) 2 mg IVP STAT STA Stop: 07/06/17 14:45 Last Admin: 07/06/17 15:05 Dose: 2 mg Tetanus/Reduced Diphtheria/Acell Pertussis (Boostrix Vaccine Inj) 0.5 ml IM .ONCE ONE Stop: 07/06/17 14:31 Last Admin: 07/06/17 14:40 Dose: 0.5 ml - Critical Care Total Time (In Min): 60 Notes:: critical note: bleeding stopped with CHACHA wrap to area of injury vascular check done q6-7mins via doppler to asses arterial pulse-no pulse noted. ulnar pulse noted but faint. coags type and screen with blood transfusion of blood type O(-) blood transfusion ordered with pt consent in [place] due to arterial blood loss x 20 min however pt blood pressure began to improve, Hgb 14.5 and pt no longer was pale or having dizziness. Pt was given IV NS fluids 1 L push due to low Blood pressure diastolic/systolic <100 BP improved morphine 8mg in total given to pt . cefazolin provided to pt. tetatnus provided to pt. Pt son in ED with pt. MD Keri contacted [facility] and will be transferred via [facility] [place] 1455: MD Neetu from [facility] trauma team-spoken to. want no fluids incase there is a clot that is help to stop further bleeding. therefore all fluids stopped. 15:00: case accepted by [facility] trauma center will be transferred. continuous air sampling and monitoring with good HR, pulse Ox. blood pressure elevated, Hx of HTN. at time of transfer pt stable, still in pain, VS stable, no longer diaphoretic, ulnar pulses noted but faint. no radial pulse. hand warmer however still discolored with swelling. no longer bleeding. Medical Decision Making Medical Decision Making: pt to be transferred to [facility] trauma center. Disposition - Clinical Impression Clinical Impression: Laceration of muscle, fascia and tendon of long head of biceps, right arm, initial encounter - Patient ED Disposition Is Patient to be Admitted: Yes - Disposition Disposition: Other Institution Disposition Time: 15:27 Condition: CRITICAL Forms: [employer] ([place])
[2017-07-06] MEDS ORDERED: Hydrogen Peroxide 3% Soln (480ml) TP ONE (15:14)
[2017-07-06 15:17] LABS: INR 1.1 (0.9-1.2); PARTIAL THROMBOPLASTIN TIME 22.6 Seconds (25.6-37.1); PROTHROMBIN TIME 10.9 Seconds (9.8-13.1)
--- NOTE | 2017-07-06 16:53 | RAD ---
PROCEDURE: Radiographs of the right humerus. HISTORY: injury COMPARISON: None. FINDINGS: BONES: Normal. No fracture or focal lesion. SOFT TISSUES: Normal. OTHER FINDINGS: None. IMPRESSION: Normal radiographs of right humerus.
== END 2017-07-06 15:30 | disposition short-term general hospital (02) ==
LOC: H.ER 14:12
DX: S41.111A Laceration without foreign body of right upper arm, initial encounter (principal); W20.8XXA Other cause of strike by thrown, projected or falling object, initial encounter; Y93.9 Activity, unspecified; Y92.9 Unspecified place or not applicable; Y99.0 Civilian activity done for income or pay

== ENCOUNTER 2019-03-29 19:59 | Observation (INO) | payer MEDICAID, OTHER ==
[2019-03-29] MEDS ORDERED: Sodium Chloride 0.9% 1,000 ML IV STA (21:03)
[2019-03-29] MEDS ORDERED: DiphenhydrAMINE 50 mg/ml Inj IVP STA (21:04)
--- NOTE | 2019-03-29 21:16 | ED PDOC ---
HPI: Headache Time Seen by Provider: 03/29/19 20:29 Chief Complaint (Nursing): Headache Chief Complaint (Provider): headache History Per: Patient, Family History/Exam Limitations: no limitations Onset/Duration Of Symptoms: Days (3 but ongoing intermittently for 20 years) Current Symptoms Are (Timing): Still Present Severity: Severe Quality: Pressure, "Pain" Preceeding Symptoms: None Associated Symptoms: Blurred Vision, Nausea, Extremity Weakness (diffuse). denies: Photophobia, Vomiting Past Medical History Reviewed: Historical Data, Nursing Documentation, Vital Signs Vital Signs: Last Vital Signs Temp 98 F 03/29/19 20:24 Pulse 65 03/29/19 20:24 Resp 16 03/29/19 20:24 BP 135/79 03/29/19 20:24 Pulse Ox 98 03/29/19 20:24 Primary Care Provider: FAMILY PROVIDER,NO - Medical History PMH: HTN Denies: Chronic Kidney Disease Other PMH: Rhabdomyolysis - Family History Family History: States: Unknown Family Hx - Social History Current smoker - smoking cessation education provided: No - Allergies Allergies/Adverse Reactions: Allergies Allergy/AdvReac Type Severity Reaction Status Date / Time No Known Allergies Allergy Verified 05/11/17 20:18 Review of Systems ROS Statement: Except As Marked, All Systems Reviewed And Found Negative (and as per HPI) Constitutional: Positive for: Chills, Weakness, Malaise Eyes: Positive for: Vision Change ENT: Negative for: Mouth Swelling, Throat Pain Gastrointestinal: Positive for: Nausea. Negative for: Vomiting Neurological: Positive for: Weakness (bilateral arms, sometimes left, sometimes right), Incoordination (occasionally), Headache, Dizziness. Negative for: Seizures, Altered Mental Status Psych: Positive for: Anxiety Physical Exam - Reviewed Nursing Documentation Reviewed: Yes Vital Signs Reviewed: Yes - Physical Exam Appears: Positive for: Non-toxic, In Acute Distress (mild painful) Head Exam: Positive for: ATRAUMATIC, NORMOCEPHALIC Skin: Positive for: Warm, Dry Eye Exam: Positive for: EOMI, PERRL ENT: Positive for: Pharynx Is (clear) Neck: Positive for: Painless ROM, Supple Cardiovascular/Chest: Positive for: Regular Rate, Rhythm. Negative for: Murmur Respiratory: Positive for: Normal Breath Sounds. Negative for: Respiratory Distress Gastrointestinal/Abdominal: Positive for: Soft. Negative for: Tenderness Back: Positive for: Normal Inspection. Negative for: Decreased ROM Extremity: Positive for: Normal ROM. 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 Negative for: Motor/Sensory Deficits - Laboratory Results Result Diagrams: 03/30/19 04:20 03/30/19 09:25 - ECG O2 Sat by Pulse Oximetry: 98 Pulse Ox Interpretation: Normal - Progress ED Course And Treament: HYPOnatremia and elevated CPK. Renal function normal. Needs hospitalization for symptomatic hyponatremia and recurrent idiopathic rhabdomyolysis. Aggressive fluid hydration withheld due to pt's hyponatremia. Further workup for etiology necessary. MYLES Robins for hospitalization Disposition - Clinical Impression Clinical Impression: Rhabdomyolysis, Hyponatremia, Chronic headache disorder - Disposition Disposition Time: 23:00 Condition: FAIR - Pt Status Changed To: Hospital Disposition Of: Observation - POA Present On Arrival: None
[2019-03-29] MEDS ORDERED: DiphenhydrAMINE 50 mg/ml Inj ONE (21:26)
[2019-03-29 22:06] LABS: BASO % 0.5 % (0.0-2.0); EOS # 0.1 K/uL (0.0-0.7); EOS % 2.4 % (0.0-4.0); HEMOGLOBIN 15.2 g/dL (12.0-18.0); LYMPH # 2.5 K/uL (1.0-4.3); LYMPH % 40.1 % (20.0-40.0); MEAN CELL VOLUME 89.7 fl (80.0-94.0); MEAN CORPUSCULAR HEMOGLOBIN 31.8 pg (27.0-31.0); MEAN CORPUSCULAR HGB CONC 35.5 g/dL (33.0-37.0); MEAN PLATELET VOLUME 9.4 fl (7.2-11.7); MONO # 0.4 K/uL (0.0-0.8); NEUT # 3.1 K/uL (1.8-7.0); NRBC % 0.1 % (0.0-0.0); RBC 4.78 Mil/uL (4.40-5.90); RED CELL DISTRIBUTION WIDTH 13.5 % (11.5-14.5); WHITE BLOOD COUNT 6.2 K/uL (4.8-10.8)
[2019-03-29 22:14] LABS: PROTHROMBIN TIME 11.7 Seconds (9.8-13.1)
[2019-03-29 22:16] LABS: PARTIAL THROMBOPLASTIN TIME 29.5 Seconds (25.6-37.1)
[2019-03-29 22:20] LABS: ALB/GLOB RATIO 1.4 (1.0-2.1); ALBUMIN 4.4 g/dL (3.5-5.0); ALT/SGPT 40 U/L (21-72); AST/SGOT 50 U/L (17-59); BLOOD UREA NITROGEN 18 mg/dl (9-20); CALCIUM 8.8 mg/dL (8.4-10.2); GFR NON-AFRICAN AMERICAN > 60
--- NOTE | 2019-03-30 00:12 | CP.PCM.HP ---
<Messi Leary - Last Filed: 03/30/19 01:03> History of Present Illness - History of Present Illness History of Present Illness: 53 yo M with history of Rhabodmyolysis and FAWN presents with headaches. Pt states headaches have been consistent since his fall from a 4th floor with 1 month comatose state in 2000. Headache is diffuse. 10/10 at its worse. Intermittent blurred vision and generalized, diffuse weakness. Mildly alleviated with advil. Associated with nausea. At times, his headaches will last 2 weeks. No neurologist. Denies focal neurological deficits. Pt reports that headache has been worsening, which brought him to the ER. Of note: last discharge summary recommended for muscle biopsy; not done. 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 He denies recent strenuous activity, or prolonged periods without body movement. No falls. Ambulates without difficulty. He states experiencing generalized muscle spasms for the past 2 years. Not on antispasmodics. He does note increase in generalized joint pain with his muscle spasms. He states that since his last admission in 2016, he was instructed to drink plenty of water and gatorade for electrolyte replacement. He reports drinking anywhere from 1 - 4 bottles of liquid/day. Denies recent increase in thirst. Denies CP/SOB/Vomiting/fever/recent travel/recent acute illness. [id number] present at bedside. PMD: [facility] last visit 04/2017 Surg: none Fam: none Soc: Denies smoking, etoh, illicit drugs; lives with and family NKDA Currently only taking Advil for pain. Present on Admission - Present on Admission Any Indicators Present on Admission: No History of Uncontrolled Diabetes: No Review of Systems - Constitutional Constitutional: As Per HPI - EENT Eyes: As Per HPI - Cardiovascular Cardiovascular: absent: Chest Pain - Respiratory Respiratory: absent: Dyspnea - Genitourinary Genitourinary: As Per HPI - Neurological Neurological: As Per HPI Past Patient History - Infectious Disease Hx of Infectious Diseases: None - Past Medical History & Family History Past Medical History?: Yes - Past Social History Smoking Status: Never Smoked Alcohol: None Drugs: Denies Home Situation {Lives}: With Family - CARDIAC Hx Hypertension: No - PULMONARY Hx Respiratory Disorders: No - NEUROLOGICAL Hx Neurological Disorder: Yes (chronic headaches; hx of coma 2/2 fall) Hx Migraine: Yes Other/Comment: comatose for 1 month in 2001 - HEENT Hx HEENT Problems: Yes (chronic headaches) - RENAL Hx Chronic Kidney Disease: Yes Other/Comment: hx of FAWN - ENDOCRINE/METABOLIC Hx Endocrine Disorders: No - HEMATOLOGICAL/ONCOLOGICAL Hx Blood Disorders: No - INTEGUMENTARY Hx Dermatological Problems: No - MUSCULOSKELETAL/RHEUMATOLOGICAL Hx Falls: Yes (fell 2000, work-related) - GASTROINTESTINAL Hx Gastrointestinal Disorders: No - GENITOURINARY/GYNECOLOGICAL Hx Genitourinary Disorders: No - PSYCHIATRIC Hx Psychophysiologic Disorder: No Hx Substance Use: No - SURGICAL HISTORY Hx Surgeries: No - ANESTHESIA Hx Anesthesia: Yes Hx Anesthesia Reactions: No Meds Allergies/Adverse Reactions: Allergies Allergy/AdvReac Type Severity Reaction Status Date / Time No Known Allergies Allergy Verified 05/11/17 20:18 Physical Exam - Constitutional Appears: No Acute Distress - Eye Exam Eye Exam: EOMI - ENT Exam ENT Exam: Mucous Membranes Moist - Respiratory Exam Respiratory Exam: Clear to Auscultation Bilateral, NORMAL BREATHING PATTERN. absent: Wheezes - Cardiovascular Exam Cardiovascular Exam: REGULAR RHYTHM, +S1, +S2 - GI/Abdominal Exam GI & Abdominal Exam: Normal Bowel Sounds, Soft. absent: Tenderness - Back Exam Back exam: absent: CVA tenderness (L), CVA tenderness (R) - Neurological Exam Neurological exam: Alert, CN II-XII Intact - Psychiatric Exam Psychiatric exam: Normal Affect, Normal Mood Results - Vital Signs Recent Vital Signs: Last Vital Signs Temp 98 F 03/29/19 20:24 Pulse 65 03/29/19 20:24 Resp 16 03/29/19 20:24 BP 135/79 03/29/19 20:24 Pulse Ox 98 03/29/19 21:20 - Labs Result Diagrams: 03/29/19 21:40 03/29/19 21:40 Labs: Laboratory Results - last 24 hr 03/29/19 03/29/19 03/29/19 21:40 21:40 21:40 WBC 6.2 RBC 4.78 Hgb 15.2 Hct 42.9 MCV 89.7 MCH 31.8 H MCHC 35.5 RDW 13.5 Plt Count 146 MPV 9.4 Neut % (Auto) 50.0 Lymph % (Auto) 40.1 H [place] % (Auto) 7.0 Eos % (Auto) 2.4 Baso % (Auto) 0.5 Neut # (Auto) 3.1 Lymph # (Auto) 2.5 [place] # (Auto) 0.4 Eos # (Auto) 0.1 Baso # (Auto) 0.0 PT 11.7 INR 1.0 APTT 29.5 Sodium 122 L Potassium 4.4 Chloride 101 Carbon Dioxide 28 Anion Gap -3 L BUN 18 Creatinine 0.9 Est GFR ( Amer) > 60 Est GFR (Non-Af Amer) > 60 Random Glucose 90 Calcium 8.8 Phosphorus 3.7 Magnesium 2.1 Total Bilirubin 0.8 AST 50 ALT 40 Alkaline Phosphatase 86 Total Creatine Kinase 875 H Troponin I < 0.0120 Total Protein 7.5 Albumin 4.4 Globulin 3.1 Albumin/Globulin Ratio 1.4 Assessment & Plan - Assessment and Plan (Free Text) Assessment: 53 yo M with history of Rhabodmyolysis and FAWN presents with headaches. Admitted for rhabdomyolysis and Hyponatremia. Plan: CT HEAD: No acute intracranial abnormality Hyponatremia: Na: 122 s/p IVF NS 1 bolus in ER c/w NS at 150 mls/hr monitor I&O f/u am labs, r/o other causes: SIADH Rhabdomyolysis: CK: 875 possibly 2/2 to muscle spams, or hyponatremia s/p IVF NS 1 bolus in ER c/w NS at 150 mls/hr f/u levels and am labs Headaches: CT reviewed: no acute bleed noted; no acute intracranial abnormality Pain management: acetaminophen prn; pt had improved symptoms after 975 mg given in ER neurocheck q8 DVT prophylaxis: SCDs Pepcid Case and Plan d/w Dr. Shimon Leary MD PGY2 <Juan Robins - Last Filed: 03/30/19 10:56> Results - Vital Signs Recent Vital Signs: Last Vital Signs Temp 97.8 F 03/30/19 04:45 Pulse 59 L 03/30/19 04:45 Resp 18 03/30/19 04:45 BP 123/73 03/30/19 04:45 Pulse Ox 96 03/30/19 04:45 - Labs Result Diagrams: 03/30/19 04:20 03/30/19 09:25 Labs: Laboratory Results - last 24 hr 03/29/19 03/29/19 03/29/19 21:40 21:40 21:40 WBC 6.2 RBC 4.78 Hgb 15.2 Hct 42.9 MCV 89.7 MCH 31.8 H MCHC 35.5 RDW 13.5 Plt Count 146 MPV 9.4 Neut % (Auto) 50.0 Lymph % (Auto) 40.1 H [place] % (Auto) 7.0 Eos % (Auto) 2.4 Baso % (Auto) 0.5 Neut # (Auto) 3.1 Lymph # (Auto) 2.5 [place] # (Auto) 0.4 Eos # (Auto) 0.1 Baso # (Auto) 0.0 ESR PT 11.7 INR 1.0 APTT 29.5 Sodium 122 L Potassium 4.4 Chloride 101 Carbon Dioxide 28 Anion Gap -3 L BUN 18 Creatinine 0.9 Est GFR ( Amer) > 60 Est GFR (Non-Af Amer) > 60 Random Glucose 90 Serum Osmolality Calcium 8.8 Phosphorus 3.7 Magnesium 2.1 Total Bilirubin 0.8 AST 50 ALT 40 Alkaline Phosphatase 86 Total Creatine Kinase 875 H Troponin I < 0.0120 Total Protein 7.5 Albumin 4.4 Globulin 3.1 Albumin/Globulin Ratio 1.4 TSH 3rd Generation Urine Osmolality Ur Random Sodium Ur Random Potassium Urine Opiates Screen Urine Methadone Screen Ur Barbiturates Screen Ur Phencyclidine Scrn Ur Amphetamines Screen U Benzodiazepines Scrn U Oth Cocaine Metabols U Cannabinoids Screen 03/30/19 03/30/19 03/30/19 01:08 01:08 02:14 WBC RBC Hgb Hct MCV MCH MCHC RDW Plt Count MPV Neut % (Auto) Lymph % (Auto) [place] % (Auto) Eos % (Auto) Baso % (Auto) Neut # (Auto) Lymph # (Auto) [place] # (Auto) Eos # (Auto) Baso # (Auto) ESR PT INR APTT Sodium 138 Potassium 4.1 Chloride 108 H Carbon Dioxide 23 Anion Gap 11 BUN 17 Creatinine 0.7 L Est GFR ( Amer) > 60 Est GFR (Non-Af Amer) > 60 Random Glucose 95 Serum Osmolality 310 H Calcium 8.6 Phosphorus Magnesium Total Bilirubin AST ALT Alkaline Phosphatase Total Creatine Kinase Troponin I Total Protein Albumin Globulin Albumin/Globulin Ratio TSH 3rd Generation Urine Osmolality 584 Ur Random Sodium 58 Ur Random Potassium 40.1 Urine Opiates Screen Negative Urine Methadone Screen Negative Ur Barbiturates Screen Negative Ur Phencyclidine Scrn Negative Ur Amphetamines Screen Negative U Benzodiazepines Scrn Negative U Oth Cocaine Metabols Negative U Cannabinoids Screen Negative 03/30/19 03/30/19 04:20 04:20 WBC 5.2 RBC 4.50 Hgb 14.1 Hct 40.1 MCV 89.2 MCH 31.5 H MCHC 35.3 RDW 13.2 Plt Count 136 MPV 9.6 Neut % (Auto) 48.8 L Lymph % (Auto) 43.0 H [place] % (Auto) 5.1 Eos % (Auto) 2.6 Baso % (Auto) 0.5 Neut # (Auto) 2.6 Lymph # (Auto) 2.3 [place] # (Auto) 0.3 Eos # (Auto) 0.1 Baso # (Auto) 0.0 ESR 3 PT INR APTT Sodium Potassium Chloride Carbon Dioxide Anion Gap BUN Creatinine Est GFR ( Amer) Est GFR (Non-Af Amer) Random Glucose Serum Osmolality Calcium Phosphorus Magnesium Total Bilirubin AST ALT Alkaline Phosphatase Total Creatine Kinase 984 H Troponin I Total Protein Albumin Globulin Albumin/Globulin Ratio TSH 3rd Generation 1.13 Urine Osmolality Ur Random Sodium Ur Random Potassium Urine Opiates Screen Urine Methadone Screen Ur Barbiturates Screen Ur Phencyclidine Scrn Ur Amphetamines Screen U Benzodiazepines Scrn U Oth Cocaine Metabols U Cannabinoids Screen Attending/Attestation - Attestation I have personally seen and examined this patient.: Yes I have fully participated in the care of the patient.: Yes I have reviewed all pertinent clinical information: Yes Notes (Text): 03/30/19 07:01 I saw, examined and discussed this patient with Dr Leary. i agree with the assessment and plan outlined which represent my direct input. This is a 53 years old male with recurrent episodes of Hyponatremia and Rhabdomyolysis. He comes with headache, and dizziness with weakness worsening over the pat 3 days. Sodium 122 and CPK 875 in ED. Cat Scan o f the head showed no acute pathology. Treat for Hyponatremia and early Rhabdomyolysis with liter Normal saline. Follow Electrolytes and CPK. Juan Robins MD
[2019-03-30] MEDS ORDERED: Sodium Chloride 0.9% 1,000 ML IV SCH ×2 (00:15→00:26)
[2019-03-30 01:55] LABS: BARBITURATES, UR NEGATIVE (NEGATIVE); BENZODIAZEPINES, UR NEGATIVE (NEGATIVE); OPIATES, UR NEGATIVE (NEGATIVE); PHENCYCLIDINE, UR NEGATIVE (NEGATIVE)
[2019-03-30 02:11] LABS: OSMOLALITY,URINE 584 mosm/kg (300-1000)
[2019-03-30 02:22] LABS: BLOOD UREA NITROGEN 17 mg/dl (9-20); CALCIUM 8.6 mg/dL (8.4-10.2); GFR NON-AFRICAN AMERICAN > 60
[2019-03-30 06:11] LABS: BASO % 0.5 % (0.0-2.0); EOS # 0.1 K/uL (0.0-0.7); EOS % 2.6 % (0.0-4.0); HEMOGLOBIN 14.1 g/dL (12.0-18.0); LYMPH # 2.3 K/uL (1.0-4.3); MEAN CELL VOLUME 89.2 fl (80.0-94.0); MEAN CORPUSCULAR HEMOGLOBIN 31.5 pg (27.0-31.0); MEAN CORPUSCULAR HGB CONC 35.3 g/dL (33.0-37.0); MEAN PLATELET VOLUME 9.6 fl (7.2-11.7); MONO # 0.3 K/uL (0.0-0.8); MONO % 5.1 % (0.0-10.0); NEUT # 2.6 K/uL (1.8-7.0); NEUT % 48.8 % (50.0-75.0); NRBC % 0.1 % (0.0-0.0); RBC 4.5 Mil/uL (4.40-5.90); RED CELL DISTRIBUTION WIDTH 13.2 % (11.5-14.5); WHITE BLOOD COUNT 5.2 K/uL (4.8-10.8)
[2019-03-30 06:58] LABS: URINE BILIRUBIN NEGATIVE (NEGATIVE); URINE BLOOD NEGATIVE (NEGATIVE); URINE CLARITY CLEAR (Clear); URINE COLOR YELLOW (YELLOW); URINE GLUCOSE (UA) NEG (NEGATIVE); URINE LEUKOCYTE ESTERASE NEG Leu/uL (Negative); URINE PROTEIN NEGATIVE (NEGATIVE); URINE UROBILINOGEN 0.2-1.0 mg/dL (0.2-1.0)
[2019-03-30 08:27] VITALS: RESP 20
[2019-03-30 09:51] LABS: BLOOD UREA NITROGEN 12 mg/dl (9-20); CALCIUM 8.5 mg/dL (8.4-10.2); GFR NON-AFRICAN AMERICAN > 60
--- NOTE | 2019-03-30 10:19 | CT ---
Date of service: 03/29/2019 PROCEDURE: CT HEAD WITHOUT CONTRAST. HISTORY: severe headache COMPARISON: Noncontrast head CT 01/21/2017. TECHNIQUE: Axial computed tomography images were obtained through the head/brain without intravenous contrast. Radiation dose: Total exam DLP = 748.03 mGy-cm. This CT exam was performed using one or more of the following dose reduction techniques: Automated exposure control, adjustment of the mA and/or kV according to patient size, and/or use of iterative reconstruction technique. FINDINGS: HEMORRHAGE: No intracranial hemorrhage. BRAIN: Normal ambriz-white matter differentiation and density are appreciated throughout the cerebrum and cerebellum with the brainstem appearing unremarkable as well. There is no mass effect. There is no suspicious extra-axial fluid collection and the midline brain anatomy appears diffusely unremarkable. VENTRICLES: Unremarkable. No hydrocephalus. CALVARIUM: Unremarkable. PARANASAL SINUSES: Unremarkable as visualized. No significant inflammatory changes. MASTOID AIR CELLS: Unremarkable as visualized. No inflammatory changes. OTHER FINDINGS: None. IMPRESSION: Unremarkable unenhanced head CT. Concordant preliminary report from Kwame, 03/29/2019, 10:15 p.m.
--- NOTE | 2019-03-30 10:25 | CP.PCM.DIS ---
Provider - Provider Date of Admission: 03/29/19 22:59 Attending physician: Juan Robins Time Spent in preparation of Discharge (in minutes): 33 Diagnosis - Discharge Diagnosis (1) Rhabdomyolysis Status: Acute (2) Acute hyponatremia Status: Acute Hospital Course - Lab Results Lab Results: Most Recent Lab Values WBC 5.2 K/uL (4.8-10.8) 03/30/19 04:20 RBC 4.50 Mil/uL (4.40-5.90) 03/30/19 04:20 Hgb 14.1 g/dL (12.0-18.0) 03/30/19 04:20 Hct 40.1 % (35.0-51.0) 03/30/19 04:20 MCV 89.2 fl (80.0-94.0) 03/30/19 04:20 MCH 31.5 pg (27.0-31.0) H 03/30/19 04:20 MCHC 35.3 g/dL (33.0-37.0) 03/30/19 04:20 RDW 13.2 % (11.5-14.5) 03/30/19 04:20 Plt Count 136 K/uL (130-400) 03/30/19 04:20 MPV 9.6 fl (7.2-11.7) 03/30/19 04:20 Neut % (Auto) 48.8 % (50.0-75.0) L 03/30/19 04:20 Lymph % (Auto) 43.0 % (20.0-40.0) H 03/30/19 04:20 [place] % (Auto) 5.1 % (0.0-10.0) 03/30/19 04:20 Eos % (Auto) 2.6 % (0.0-4.0) 03/30/19 04:20 Baso % (Auto) 0.5 % (0.0-2.0) 03/30/19 04:20 Neut # (Auto) 2.6 K/uL (1.8-7.0) 03/30/19 04:20 Lymph # (Auto) 2.3 K/uL (1.0-4.3) 03/30/19 04:20 [place] # (Auto) 0.3 K/uL (0.0-0.8) 03/30/19 04:20 Eos # (Auto) 0.1 K/uL (0.0-0.7) 03/30/19 04:20 Baso # (Auto) 0.0 K/uL (0.0-0.2) 03/30/19 04:20 ESR 3 mm/hr (0-20) 03/30/19 04:20 PT 11.7 Seconds (9.8-13.1) 03/29/19 21:40 INR 1.0 03/29/19 21:40 APTT 29.5 Seconds (25.6-37.1) 03/29/19 21:40 Sodium 138 mmol/l (132-148) 03/30/19 09:25 Potassium 3.7 MMOL/L (3.6-5.0) 03/30/19 09:25 Chloride 107 mmol/L (98-107) 03/30/19 09:25 Carbon Dioxide 23 mmol/L (22-30) 03/30/19 09:25 Anion Gap 12 (10-20) 03/30/19 09:25 BUN 12 mg/dl (9-20) 03/30/19 09:25 Creatinine 0.7 mg/dl (0.8-1.5) L 03/30/19 09:25 Est GFR ( Amer) > 60 03/30/19 09:25 Est GFR (Non-Af Amer) > 60 03/30/19 09:25 Random Glucose 119 mg/dL (75-110) H 03/30/19 09:25 Serum Osmolality 310 mosm/kg (272-300) H 03/30/19 01:08 Calcium 8.5 mg/dL (8.4-10.2) 03/30/19 09:25 Phosphorus 3.7 mg/dl (2.5-4.5) 03/29/19 21:40 Magnesium 2.1 MG/DL (1.6-2.3) 03/29/19 21:40 Total Bilirubin 0.8 mg/dl (0.2-1.3) 03/29/19 21:40 AST 50 U/L (17-59) 03/29/19 21:40 ALT 40 U/L (21-72) 03/29/19 21:40 Alkaline Phosphatase 86 U/L (38-126) 03/29/19 21:40 Total Creatine Kinase 968 U/L (55-170) H 03/30/19 09:25 Troponin I < 0.0120 ng/mL (0.00-0.120) 03/29/19 21:40 Total Protein 7.5 G/DL (6.3-8.2) 03/29/19 21:40 Albumin 4.4 g/dL (3.5-5.0) 03/29/19 21:40 Globulin 3.1 gm/dL (2.2-3.9) 03/29/19 21:40 Albumin/Globulin Ratio 1.4 (1.0-2.1) 03/29/19 21:40 TSH 3rd Generation 1.13 mIU/ML (0.46-4.68) 03/30/19 04:20 Urine Color Yellow (YELLOW) 03/30/19 06:45 Urine Clarity Clear (Clear) 03/30/19 06:45 Urine pH 6.0 (5.0-8.0) 03/30/19 06:45 Ur Specific [place] 1.015 (1.003-1.030) 03/30/19 06:45 Urine Protein Negative mg/dL (NEGATIVE) 03/30/19 06:45 Urine Glucose (UA) Neg mg/dL (NEGATIVE) 03/30/19 06:45 Urine Ketones Negative mg/dL (NEGATIVE) 03/30/19 06:45 Urine Blood Negative (NEGATIVE) 03/30/19 06:45 Urine Nitrate Negative (NEGATIVE) 03/30/19 06:45 Urine Bilirubin Negative (NEGATIVE) 03/30/19 06:45 Urine Urobilinogen 0.2-1.0 mg/dL (0.2-1.0) 03/30/19 06:45 Ur Leukocyte Esterase Neg [place]/uL (Negative) 03/30/19 06:45 Urine RBC (Auto) < 1 /hpf (0-3) 03/30/19 06:45 Urine Osmolality 584 mosm/kg (300-1000) 03/30/19 01:08 Ur Random Sodium 58 meq/L 03/30/19 01:08 Ur Random Potassium 40.1 mmol/L 03/30/19 01:08 Urine Opiates Screen Negative (NEGATIVE) 03/30/19 01:08 Urine Methadone Screen Negative (NEGATIVE) 03/30/19 01:08 Ur Barbiturates Screen Negative (NEGATIVE) 03/30/19 01:08 Ur Phencyclidine Scrn Negative (NEGATIVE) 03/30/19 01:08 Ur Amphetamines Screen Negative (NEGATIVE) 03/30/19 01:08 U Benzodiazepines Scrn Negative (NEGATIVE) 03/30/19 01:08 U Oth Cocaine Metabols Negative (NEGATIVE) 03/30/19 01:08 U Cannabinoids Screen Negative (NEGATIVE) 03/30/19 01:08 - Hospital Course Hospital Course: This is a 53 years old male with recurrent episodes of Rhabdomyolysis. He comes with headache, and dizziness with weakness worsening over the pat 3 days. Sodium 122 and CPK 875 in ED. Cat Scan o f the head showed no acute pathology. Patient was treated for Hyponatremia and early Rhabdomyolysis with Normal saline. Patient shows a signifiacant improvement of condition clinically, hemodinamically stable, VS within normal range today, patient denies QUIROGA, CP, SOB, N/V/D, blood in urine or any other medical complaint at present. Upon my encounter with patient today patient admits he has been exercising (work out) intesenly the last few days at home and drinking a fluids. Patient is at this time instructed to rest and avoid exercising. Patient will need after hosptal DC f/u as an outpatient, appoitnemtn is arranged for next April 04 at 10:40 AM, patient is informed of the appoinment. LAbs and MR is reviewed: CBC unremarkable, Chem Na138, K 3.7, CPK 968 trending down. Urine clear. Plan -Do not exercise until you see your doctor within a week. -Avoid strenous activities -Maintain appropiate hydration and eat healthy Discharge Exam - Head Exam Head Exam: ATRAUMATIC, NORMOCEPHALIC - Eye Exam Eye Exam: EOMI - ENT Exam ENT Exam: Mucous Membranes Moist - Respiratory Exam Respiratory Exam: Clear to PA & Lateral, NORMAL BREATHING PATTERN - Cardiovascular Exam Cardiovascular Exam: REGULAR RHYTHM, +S1, +S2 - GI/Abdominal Exam GI & Abdominal Exam: Normal Bowel Sounds, Soft. absent: Tenderness - Neurological Exam Neurological exam: Alert, Oriented x3 - Psychiatric Exam Psychiatric exam: Normal Affect - Skin Skin Exam: Normal Color, Warm Discharge Plan - Follow Up Plan Condition: GOOD Disposition: HOME/ ROUTINE Patient education suggested?: Yes Instructions: Rhabdomyolysis (DC), Hyponatremia (DC) Additional Instructions: Follow up at [facility] in 2 to 3 days, appointment follow up made for April 04Wednesday at 10:[address] Shaw ED precautions given: Go to the ED if you have headache that does not get relief, chills, fever, chest pain, shortness of breath, abdominal pain, nausea, vomiting, blood in urine or other symptom or concern presents. [facility]errals: [facility] [Provider Group]
[2019-03-30 11:46] VITALS: BP 124/69; PULSE 66; TEMP 97.9
[2019-04-01 11:28] VITALS: O2SAT 98
== END 2019-03-30 14:03 | disposition home or self-care (01) ==
LOC: H.ER 19:59 → H.ERHOLD 22:59 → UNDOADMOB 22:59 → H.TEL 03-30 01:41
PROVIDERS: ADMIT Internal Medicine; ATTEND Internal Medicine
DX: M62.82 Rhabdomyolysis (principal); E87.1 Hypo-osmolality and hyponatremia; I10 Essential (primary) hypertension
CPT/HCPCS: 36415; 70450; 80048; 80053; 81003; 82436; 82550; 83735; 83930; 83935; 84100; 84132; 84300; 84443; 84484; 85025; 85610; 85651; 85730; 96361; 96374; 96375; 99285; G0378; G0480; J1200; J2765; J7030; J7070